=== PATIENT | male | born 1995 | race Two or more races ===

== ENCOUNTER 2017-10-13 13:30 | Emergency (ER) | payer BC ==
[2017-10-13 14:43] VITALS: BP 137/89
--- NOTE | 2017-10-14 12:17 | CR ---
INDICATION: Chest pain. CHEST: PA and lateral views of the chest revealed the heart and mediastinum to be unremarkable. A very minimal dextroconcave scoliosis at the lower thoracic spine is noted. An active infiltrate or effusion was not identified. The AP diameter is somewhat prominent. However, no gross hyperaeration or gross flattening of diaphragm leaves was seen. IMPRESSION: No definite acute process. MTDD
--- NOTE | 2017-10-16 09:06 | ER ---
DATE SEEN: 10/13/2017 TIME SEEN: The patient was seen at 1335 hours. HISTORY OF PRESENT ILLNESS: The patient complains of parasternal chest pain, 2 to 3/10 in intensity. It is constant. He drives a fork lift. . No fever. No chills. No cough. No shortness of breath. No syncope. No presyncope. No palpitations. No diaphoresis or abdominal discomfort. His girlfriend thought perhaps he might be dehydrated. Does not smoke. Occasional alcohol. He drinks at least five 12-ounce cans of pop a day. He is overweight. ALLERGIES: None. MEDICATIONS: None. HPI is noncontributory. He states he is [place], working at [employer]. PHYSICAL EXAMINATION: VITAL SIGNS: Blood pressure 155/84, repeat blood pressure 137/89, heart rate 91, respirations 18, oxygen saturation 100%, and temperature is 36.7 degrees. He is 97.52 kg. BMI is 31.7 kg/m2. GENERAL: He is mildly overweight, pleasant young man who, in spite of his discomfort that occurs intermittently, smiles a lot and has a happy disposition. He is attended by significant friend or his girlfriend. I am not sure which is the latter. HEENT: Without abnormality. PERRLA intact. Pupils are appropriate. Pharynx without abnormality. NECK: No cervical adenopathy, thyromegaly, masses in neck, or cervical bruits. LUNGS: Clear without rales, rhonchi, or wheezes. HEART: S1, S2. No murmur. No irregular rate or rhythm. ABDOMEN: Soft. No guarding. No abdominal discomfort. EXTREMITIES: Without edema. Deep tendon reflexes normal in upper extremities and lower extremities. NEUROLOGIC: Cranial nerves 2 through 12 intact. Neurological exam is intact. Strength is good. No muscle strength loss. Specific examination the chest, parasternal discomfort is reproducible, more on the right compared to the left. It is at the sternochondral junction. This requires moderate compression to elicit any discomfort. Most of the discomfort is related to left sternoclavicular joint and also the first rib that articulates in proximity to the sternoclavicular joint and first sternochondral joint. X-ray did not reveal any abnormalities. ASSESSMENT AND PLAN: Chest pain secondary to musculoskeletal involvement, sternoclavicular joint and sternochondral joint #1. His laboratory values were all normal. CBC, CMP, except for alkaline phosphatase is slightly elevated at 135 (not unusual for his age to have an elevated alkaline phosphatase). No liver enzyme changes. Troponins normal. D-dimer was negative. The patient was dismissed to use NSAIDs, ibuprofen, Tylenol. He is advised that Tylenol does not affect arthritic, but if he should make a difference to help with pain, he can use and if not, desist from using it. I did not prescribe any narcotics. He can use [id number] Naprosyn/Aleve. Follow up with his doctor in a week if not improved. It is noted this is secondary to probably his work and lifting. I did not limit his lifting as I think this would gradually progressively get better with time and without restriction. /[id number] YOU/STORM GIANG
== END 2017-10-13 14:45 | disposition home or self-care (01) ==
LOC: FB.ED 13:30
DX: R07.89 Other chest pain (principal)
CPT/HCPCS: 36415; 71046; 80053; 84484; 85025; 85379; 93005; 99285

== ENCOUNTER 2017-11-04 07:51 | Emergency (ER) | payer BC ==
[2017-11-04] MEDS ORDERED: Ketorolac 60 MG/2 ML SDV IM ONE (08:41)
--- NOTE | 2017-11-04 08:46 | EDM.PDOC ---
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, has pain with movement, some with deep breath EKG is sinus, rate 102, no ST changes mid chest Pain Score (Numeric/FACES): 6 - Related Data Allergies Allergy/AdvReac Type Severity Reaction Status Date / Time No Known Allergies Allergy Verified 10/13/17 13:45 Home Meds: Home Meds NK [No Known Home Meds] 10/13/17 [History] Past Medical History - Past Health History Medical/Surgical History: Denies Medical/Surgical History Psychiatric History: Reports: Anxiety, Panic Attack - Infectious Disease History Infectious Disease History: Reports: Chicken Pox Social & Family History - Family History Family Medical History: Unobtainable - Tobacco Use Smoking Status *Q: Former Smoker Years of Tobacco use: 1 Packs/Tins Daily: 0.5 Used Tobacco, but Quit: Yes Month Tobacco Last Used: 1 - Caffeine Use Caffeine Use: Reports: Soda - Recreational Drug Use Recreational Drug Use: No ED ROS GENERAL - Review of Systems Review Of Systems: See Below Constitutional: Reports: No Symptoms HEENT: Reports: No Symptoms Respiratory: Reports: No Symptoms Cardiovascular: Reports: Chest Pain Endocrine: Reports: No Symptoms GI/Abdominal: Reports: No Symptoms : Reports: No Symptoms Musculoskeletal: Reports: No Symptoms Skin: Reports: No Symptoms Neurological: Reports: No Symptoms Psychiatric: Reports: No Symptoms Hematologic/Lymphatic: Reports: No Symptoms Immunologic: Reports: No Symptoms ED EXAM, GENERAL - Physical Exam Exam: See Below Exam Limited By: No Limitations General Appearance: Alert, WD/WN, No Apparent Distress, Anxious Nose: Normal Inspection, Normal Mucosa, No Blood Throat/Mouth: Normal Inspection, Normal Lips, Normal Teeth, Normal Voice, No Airway Compromise Head: Atraumatic, Normocephalic Neck: Normal Inspection, Supple, Non-Tender, Full Range of Motion Respiratory/Chest: No Respiratory Distress, Lungs Clear, Normal Breath Sounds, No Accessory Muscle Use, Other (1+ tender at L costochondral junction at rib 2-4 , NT elsewhere, epigastrium NT) Cardiovascular: Regular Rate, Rhythm, No Edema, No Gallop, No Murmur, No Rub Back Exam: Normal Inspection, Full Range of Motion, NT Extremities: Normal Inspection, Normal Range of Motion, Non-Tender, No Pedal Edema, Normal Capillary Refill Neurological: Alert, Oriented, CN II-XII Intact, Normal Cognition, Normal Reflexes, No Motor/Sensory Deficits Psychiatric: Anxious Skin Exam: Warm, Dry, Intact, Normal Color, No Rash Lymphatic: No Adenopathy Course - Vital Signs Last Recorded V/S: Last Vital Signs Temp 36.4 C 11/04/17 07:55 Pulse 103 H 11/04/17 07:55 Resp 17 11/04/17 07:55 BP 157/99 H 11/04/17 07:55 Pulse Ox 100 11/04/17 07:55 - Orders/Labs/Meds Orders: Active Orders 24 hr Category Date Time Status EKG 12 Lead [EK] Routine Ther 11/04/17 08:12 Ordered Labs: Laboratory Tests 11/04/17 11/04/17 Range/Units 08:50 08:50 D-Dimer, Quantitative 216 (100-400) ng/mL Troponin I < 0.017 L (<0.017-0.056) ng/mL Meds: Medications Discontinued Medications Generic Name Dose Route Start Last Admin Trade Name Aravindq PRN Reason Stop Dose Admin Ketorolac Tromethamine 60 mg 11/04/17 08:41 11/04/17 08:49 Toradol IM 11/04/17 08:42 60 mg ONETIME ONE Administration - Re-Assessments/Exams Free Text/Narrative Re-Assessment/Exam: 11/04/17 09:48 trop and d-dimer wnl, feeling better after Toradol Departure - Departure Time of Disposition: 09:48 Disposition: Home, Self-Care 01 Condition: Good Clinical Impression: Costochondritis Instructions: Costochondritis Referrals: Nilda Duarte PLATER HELPER [Primary Care Provider] - Forms: ED Department Discharge Additional Instructions: For pain and inflammation, take ibuprofen 200 mg 4 tabs 3 times a day for 7 days. This will break the pain cycle and promote healing. Use heat for 10 minutes 2-3 times a day as needed. May continue usual activities. See your doctor in 5 days. - My Orders Last 24 Hours: My Active Orders 11/04/17 08:12 EKG 12 Lead [EK] Routine - Assessment/Plan Last 24 Hours: My Active Orders 11/04/17 08:12 EKG 12 Lead [EK] Routine
[2017-11-04 10:08] VITALS: BP 148/81
== END 2017-11-04 10:00 | disposition home or self-care (01) ==
LOC: FB.ED 07:51
DX: M94.0 Chondrocostal junction syndrome [Tietze] (principal); Z87.891 Personal history of nicotine dependence
CPT/HCPCS: 36415; 84484; 85379; 93005; 96372; 99284; J1885

== ENCOUNTER 2019-05-23 02:10 | Emergency (ER) | payer BC, MEDICAID ==
--- NOTE | 2019-05-23 02:18 | EDM.PDOC ---
ED HPI GENERAL MEDICAL PROBLEM - General Stated Complaint: CHEST PAIN Time Seen by Provider: 05/23/19 02:10 Source of Information: Reports: Patient, EMS History Limitations: Reports: No Limitations - History of Present Illness INITIAL COMMENTS - FREE TEXT/NARRATIVE: 24 y.o.w.m with a h/o anxiety, called 911 this morning because he woke up, went to the bathroom and felt 'shaky", his hand were "numb". he was hyperventilating and was extremely anxious and called 911. As te EMS arrived, his SBP was > 220 with CP. As the pt arrived here in the ED, SBP improved, CP subsided and so did the numbness of his finger. Pt had a full cardiac work up at [facility], completed a Cardiac stress test. Cardica w/u was neg as per pt. He is not taking BP meds. No N/V/D, no Dizziness, no C/P. pt's symptoms improved in the ED. BP 168/94 RR 15 Temp 36.8 Pulse 115, Pulse ox 100% on RA. Onset Date: 05/23/19 Onset Time: 01:00 Duration: Minutes:, Hour(s): Location: Reports: Chest Quality: Reports: Ache, Same as Previous Episode Severity: Mild Improves with: Reports: None Worsens with: Reports: None Context: Reports: Other Associated Symptoms: Reports: Chest Pain, Other (palpitations) - Related Data Allergies Allergy/AdvReac Type Severity Reaction Status Date / Time No Known Allergies Allergy Verified 10/13/17 13:45 Home Meds: Home Meds NK [No Known Home Meds] 10/13/17 [History] Past Medical History - Past Health History Medical/Surgical History: Denies Medical/Surgical History Psychiatric History: Reports: Anxiety, Panic Attack - Infectious Disease History Infectious Disease History: Reports: Chicken Pox Social & Family History - Family History Family Medical History: Unobtainable - Caffeine Use Caffeine Use: Reports: Soda ED ROS GENERAL - Review of Systems Review Of Systems: See Below Constitutional: Reports: No Symptoms HEENT: Reports: No Symptoms Respiratory: Reports: No Symptoms Cardiovascular: Reports: Chest Pain (subsided GROUP SALES COORDINATOR) Endocrine: Reports: No Symptoms GI/Abdominal: Reports: No Symptoms : Reports: No Symptoms Musculoskeletal: Reports: No Symptoms Skin: Reports: No Symptoms Neurological: Reports: No Symptoms Psychiatric: Reports: No Symptoms Hematologic/Lymphatic: Reports: No Symptoms Immunologic: Reports: No Symptoms ED EXAM, GENERAL - Physical Exam Exam: See Below Exam Limited By: No Limitations General Appearance: Alert, WD/WN, Mild Distress Eye Exam: Bilateral Eye: Normal Inspection Ears: Normal External Exam Ear Exam: Bilateral Ear: Auricle Normal Nose: Normal Inspection Throat/Mouth: Normal Inspection, Normal Lips, Normal Voice, No Airway Compromise Head: Atraumatic, Normocephalic Neck: Normal Inspection, Supple, Non-Tender, Full Range of Motion Respiratory/Chest: No Respiratory Distress, Lungs Clear, Normal Breath Sounds Cardiovascular: Normal Peripheral Pulses, Regular Rate, Rhythm, No Edema, No Gallop, No Murmur, No Rub Peripheral Pulses: 1+: Brachial (L) GI/Abdominal: Normal Bowel Sounds, Soft, Non-Tender, No Organomegaly, No Mass, Pelvis Stable (Male) Exam: Deferred Rectal (Males) Exam: Deferred Back Exam: Normal Inspection, Full Range of Motion Extremities: Normal Inspection, Normal Range of Motion Neurological: Alert, Oriented, CN II-XII Intact, Normal Cognition, Normal Gait, No Motor/Sensory Deficits Psychiatric: Normal Affect, Normal Mood Skin Exam: Warm, Dry, Intact, Normal Color, No Rash Lymphatic: No Adenopathy EKG INTERPRETATION EKG Date: 05/23/19 Time: 02:15 Rhythm: NSR Rate (Beats/Min): 103 [place]: Normal P-Wave: Present QRS: Normal ST-T: Elevated (1 mm at V1 and V2n no change from 11/04/17) QT: Normal Comparison: NA - No Prior EKG Course - Vital Signs Text/Narrative:: 24 y.o.w.m with a h/o anxiety, called 911 this morning because he woke up, went to the bathroom and felt 'shaky", his hand were "numb". he was hyperventilating and was extremely anxious and called 911. As te EMS arrived, his SBP was > 220 with CP. As the pt arrived here in the ED, SBP improved, CP subsided and so did the numbness of his finger. Pt had a full cardiac work up at [facility], completed a Cardiac stress test. Cardica w/u was neg as per pt. He is not taking BP meds. No N/V/D, no Dizziness, no C/P. pt's symptoms improved in the ED. BP 168/94 RR 15 Temp 36.8 Pulse 115, Pulse ox 100% on RA. PE: WNWD W M in NAD Labs: CBC nl, BMP nl except K was 3.4 Mg 1.7 TSH was 7.56 UDS was neg Impression: Elevated TSH, Hypokalemia, Hypomagnesemia, H/O anxiety with hyperventilation Tx: Potassium, Mg. Reexam: Improved and was in his usual state of health on D/C Plan: D/C with instructions Last Recorded V/S: Last Vital Signs Temp 37.1 C 05/23/19 03:32 Pulse 93 05/23/19 03:32 Resp 14 05/23/19 03:32 BP 142/82 H 05/23/19 03:32 Pulse Ox 100 05/23/19 03:32 - Orders/Labs/Meds Orders: Active Orders 24 hr Category Date Time Status EKG Documentation Completion [RC] ASDIRECTED Care 05/23/19 02:14 Active DRUG SCREEN, URINE ALERE [URCHEM] Stat Lab 05/23/19 03:10 Ordered REVERSE T3, SERUM Urgent Lab 05/23/19 02:15 Received THYROXINE (T4) FREE, DIRECT, S Urgent Lab 05/23/19 02:15 Received EKG 12 Lead [EK] Routine Ther 05/23/19 02:14 Ordered Labs: Laboratory Tests 05/23/19 05/23/19 05/23/19 Range/Units 02:15 02:15 02:15 WBC 10.6 (4.5-12.0) X10-3/uL RBC 5.21 (4.30-5.75) x10(6)uL Hgb 14.9 (13.5-17.8) g/dL Hct 43.9 (30.0-51.3) % MCV 84.2 (80-96) fL MCH 28.7 (27.7-33.6) pg MCHC 34.0 (32.2-35.4) g/dL RDW 12.9 (11.5-15.5) % Plt Count 293 (125-369) X10(3)uL MPV 8.0 (7.4-10.4) fL Neut % (Auto) 57.9 (46-82) % Lymph % (Auto) 31.4 (13-37) % [place] % (Auto) 7.7 (4-12) % Eos % (Auto) 3 (1.0-5.0) % Baso % (Auto) 0 (0-2) % Neut # (Auto) 6.2 (1.6-8.3) # Lymph # (Auto) 3.3 (0.6-5.0) # [place] # (Auto) 0.8 (0.0-1.3) # Eos # (Auto) 0.3 (0.0-0.8) # Baso # (Auto) 0.0 (0.0-0.2) # Sodium 139 (135-145) mmol/L Potassium 3.4 L (3.5-5.3) mmol/L Chloride 101 (100-110) mmol/L Carbon Dioxide 28 (21-32) mmol/L BUN 9 (7-18) mg/dL Creatinine 1.0 (0.70-1.30) mg/dL Est Cr Clr Drug Dosing 111.94 mL/min Estimated GFR (MDRD) > 60 (>60) BUN/Creatinine Ratio 9.0 (9-20) Glucose 120 H (80-116) mg/dL Calcium 9.0 (8.6-10.2) mg/dL Magnesium 1.7 L (1.8-2.5) mg/dL Creatine Kinase (60-160) IU/L Troponin I (<0.017-0.056) ng/mL TSH, Ultra Sensitive 7.56 H* (0.36-3.74) IU/mL Urine Opiates Screen (NEGATIVE) Ur Oxycodone Screen (NEGATIVE) Ur Propoxyphene Screen (NEGATIVE) Ur Barbituates Screen (NEGATIVE) Ur Tricyclics Screen (NEGATIVE) Ur Phencyclidine Scrn (NEGATIVE) Ur Amphetamine Screen (NEGATIVE) Urine MDMA Screen (NEGATIVE) U Benzodiazepines Scrn (NEGATIVE) U Cocaine Metab Screen (NEGATIVE) U Marijuana (THC) Screen (NEGATIVE) 05/23/19 05/23/19 05/23/19 Range/Units 02:15 02:15 03:10 WBC (4.5-12.0) X10-3/uL RBC (4.30-5.75) x10(6)uL Hgb (13.5-17.8) g/dL Hct (30.0-51.3) % MCV (80-96) fL MCH (27.7-33.6) pg MCHC (32.2-35.4) g/dL RDW (11.5-15.5) % Plt Count (125-369) X10(3)uL MPV (7.4-10.4) fL Neut % (Auto) (46-82) % Lymph % (Auto) (13-37) % [place] % (Auto) (4-12) % Eos % (Auto) (1.0-5.0) % Baso % (Auto) (0-2) % Neut # (Auto) (1.6-8.3) # Lymph # (Auto) (0.6-5.0) # [place] # (Auto) (0.0-1.3) # Eos # (Auto) (0.0-0.8) # Baso # (Auto) (0.0-0.2) # Sodium (135-145) mmol/L Potassium (3.5-5.3) mmol/L Chloride (100-110) mmol/L Carbon Dioxide (21-32) mmol/L BUN (7-18) mg/dL Creatinine (0.70-1.30) mg/dL Est Cr Clr Drug Dosing mL/min Estimated GFR (MDRD) (>60) BUN/Creatinine Ratio (9-20) Glucose (80-116) mg/dL Calcium (8.6-10.2) mg/dL Magnesium (1.8-2.5) mg/dL Creatine Kinase 84 (60-160) IU/L Troponin I < 0.017 L (<0.017-0.056) ng/mL TSH, Ultra Sensitive (0.36-3.74) IU/mL Urine Opiates Screen Negative (NEGATIVE) Ur Oxycodone Screen Negative (NEGATIVE) Ur Propoxyphene Screen Negative (NEGATIVE) Ur Barbituates Screen Negative (NEGATIVE) Ur Tricyclics Screen Negative (NEGATIVE) Ur Phencyclidine Scrn Negative (NEGATIVE) Ur Amphetamine Screen Negative (NEGATIVE) Urine MDMA Screen Negative (NEGATIVE) U Benzodiazepines Scrn Negative (NEGATIVE) U Cocaine Metab Screen Negative (NEGATIVE) U Marijuana (THC) Screen Negative (NEGATIVE) Meds: Medications Discontinued Medications Generic Name Dose Route Start Last Admin Trade Name Freq PRN Reason Stop Dose Admin Magnesium Chloride 64 mg 05/23/19 02:41 05/23/19 02:50 Mag-64 PO 05/23/19 02:42 64 mg ONETIME STA Administration Potassium Chloride 40 meq 05/23/19 02:35 05/23/19 02:40 Klor-Con M20 PO 05/23/19 02:36 40 meq ONETIME ONE Administration Departure - Departure Time of Disposition: 03:29 Disposition: Home, Self-Care 01 Condition: Good Clinical Impression: Hypokalemia, Hypomagnesemia, Elevated TSH Instructions: Thyroid-Stimulating Hormone Test, Hypomagnesemia, Hypokalemia Referrals: Luci Narvaez NP [Primary Care Provider] - Forms: ED Department Discharge Additional Instructions: Please f/u with your PMD this Thursday to recheck Mg, potassium and your thyroid function. Please come back if your symptoms get worse acutely - My Orders Last 24 Hours: My Active Orders 05/23/19 02:14 EKG Documentation Completion [RC] ASDIRECTED EKG 12 Lead [EK] Routine 05/23/19 02:15 REVERSE T3, SERUM Urgent THYROXINE (T4) FREE, DIRECT, S Urgent 05/23/19 03:10 DRUG SCREEN, URINE ALERE [URCHEM] Stat - Assessment/Plan Last 24 Hours: My Active Orders 05/23/19 02:14 EKG Documentation Completion [RC] ASDIRECTED EKG 12 Lead [EK] Routine 05/23/19 02:15 REVERSE T3, SERUM Urgent THYROXINE (T4) FREE, DIRECT, S Urgent 05/23/19 03:10 DRUG SCREEN, URINE ALERE [URCHEM] Stat
[2019-05-23] MEDS ORDERED: Potassium Chloride 20 MEQ Tab.ER PO ONE (02:35)
[2019-05-23] MEDS ORDERED: Magnesium Chloride 64 MG Tab.ER PO STA (02:41)
[2019-05-23 03:33] VITALS: BP 142/82; PULSE 93
== END 2019-05-23 03:40 | disposition home or self-care (01) ==
LOC: FB.ED 02:10
DX: E87.6 Hypokalemia (principal); E83.42 Hypomagnesemia; R94.6 Abnormal results of thyroid function studies
CPT/HCPCS: 36415; 80048; 80305; 82550; 83735; 84439; 84443; 84482; 84484; 85025; 93005; 99285; A9270; 93010; 99284